=== PATIENT | female | born 1975 | race Two or more races ===

== ENCOUNTER 2019-04-19 19:17 | Emergency (ER) | payer MEDICAID ==
[~2019-04-19] VITALS: Ht 157.5 cm; Wt 68.0 kg
[2019-04-19] MEDS ORDERED: KETAMINE HCL 500 MG/10 ML INJ IV ONE (19:45)
[2019-04-19] MEDS ORDERED: KETAMINE HCL 500 MG/10 ML INJ ONE ×2 (20:01→20:04)
[2019-04-19] MEDS ORDERED: PROPOFOL 200 MG/20 ML BOTTLE ONE (22:15)
[2019-04-19] MEDS ORDERED: PROPOFOL 200 MG/20 ML BOTTLE IV ONE (22:15)
--- NOTE | 2019-04-19 23:20 | NUR ---
Patient ambulatory with steady gait. A/Ox3. Denies N/V. Tolerated PO intake.
--- NOTE | 2019-04-19 23:25 | NUR ---
IV removed. Catheter intact and site benign. Pressure and 4x4 gauze applied to site. No bleeding noted.
[2019-04-19 23:30] VITALS: BP 149/72
--- NOTE | 2019-04-19 23:30 | NUR ---
Patient discharged to home in stable conditon. Written and verbal after care instructions given. Patient verbalizes understanding of instructions. Patient ambulatory with steady gait. exit care paockage and personal belongings taken home with the patient at discharge. Patient denies any pain/discomfort at this time. patient able to verblize needs and needs have been met. patient consents that her frined perry, who is at bedside, will be driving her home. Patient is alert and oriented x4. patient spoke to ER physician prior to discharge. Patient has good understanding of care and after care instructions. patient VSS.
== END 2019-04-19 23:38 | disposition home or self-care (01) ==
LOC: ER 19:19
DX: S52.501A Unspecified fracture of the lower end of right radius, initial encounter for closed fracture (principal); M25.532 Pain in left wrist; W01.0XXA Fall on same level from slipping, tripping and stumbling without subsequent striking against object, initial encounter; Y93.89 Activity, other specified; Y92.89 Other specified places as the place of occurrence of the external cause; Y99.8 Other external cause status
CPT/HCPCS: 25605; 73090 ×2; 73110; 99152; 99285; J3490 ×2; A4663; G0500; J7030

== ENCOUNTER 2019-04-28 01:46 | Emergency (ER) | payer MEDICAID ==
[~2019-04-28] VITALS: Ht 157.5 cm; Wt 70.3 kg
--- NOTE | 2019-04-28 01:57 | NUR ---
Patient came to ER with chief complaint of pain on right arm. Patient was here x1 week ago for right arm/wrist fracture. Has a splint on right arm and reported hitting it accidentally on the microwave today that causes pain now. Patient AAOX4. No cariovascular concern. Respratory even and unlabored. No /GI concern.
--- NOTE | 2019-04-28 02:01 | NUR ---
Dr. Langley on bedside for MSE.
[2019-04-28] MEDS ORDERED: HYDROCODONE/APAP 5-325MG TABLET ONE (02:02)
[2019-04-28] MEDS ORDERED: HYDROCODONE/APAP 5-325MG TABLET PO ONE (02:15)
--- NOTE | 2019-04-28 02:16 | NUR ---
Patient discharged to home in stable conditon. Written and verbal after care instructions given. Patient verbalizes understanding of instructions. Patient ambulated out of the ER with steady gait. All belongings with patient.
[2019-04-28 02:19] VITALS: BP 150/99
== END 2019-04-28 02:18 | disposition home or self-care (01) ==
LOC: ER 01:55
DX: Z47.89 Encounter for other orthopedic aftercare (principal); M25.531 Pain in right wrist; Z90.49 Acquired absence of other specified parts of digestive tract
CPT/HCPCS: A4663